=== PATIENT | male | born 2000 | race Two or more races ===

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

== ENCOUNTER 2024-04-03 03:52 | Emergency (ER) | payer BC, MEDICAID ==
[~2024-04-03] VITALS: Ht 175.3 cm; Wt 68.2 kg
[2024-04-03 04:09] VITALS: BP 127/71; PULSE 79; RESP 16; O2SAT 98
== END 2024-04-03 07:12 | disposition left against medical advice (07) ==
LOC: ER 03:52
DX: R10.32 Left lower quadrant pain (principal); R11.0 Nausea; Z53.21 Procedure and treatment not carried out due to patient leaving prior to being seen by health care provider